=== PATIENT | female | born 1960 | race Caucasian/White ===

== ENCOUNTER 2017-07-18 11:40 | Day surgery (SDC) | payer BC ==
[2017-07-17 14:31] LABS: HEMATOCRIT 37.9 % (36.0-48.0); HEMOGLOBIN 12.7 g/dL (12-16); MCH 31.9 pg (26.0-34.0); MCHC 33.5 g/dL (31.0-37.0); MCV 95.2 fL (80.0-100.0); RBC 3.98 10x6/uL (4.00-5.40); RDW 14.3 % (11.5-14.5); WBC 11.4 10x3/uL (4.8-10.8)
[~2017-07-18] VITALS: Ht 160 cm; Wt 52.2 kg
[~2017-07-18 11:40] MED LIST: ATIVAN2 MG PO; BYSTOLIC10 MG PO; CALCIUM 500 +1 EAC3 PO; FOLIC ACID1 MG PO; HYDROCHLOROTH12.5 M1 PO; HYDROCODONE-APA1 TAB PO; IMITREX100 MG PO; MULTIPLE VITAMI1 TA1 PO; PROLIA INJ 660 MG/M1 IJ; SOMA350 MG PO; TOPAMAX100 MG PO; TRAMADOL HCL E100 M1 PO; VALIUM10 MG PO; VITAMIN B-121000 MCG; VITAMIN D31000 UNI2; WELLBUTRIN SR150 MG PO
[2017-07-18 11:59] VITALS: BP 141/78; Ht 160 cm; Wt 52.2 kg
--- NOTE | 2017-07-18 19:14 | NUR ---
PATIENT SITTING UP EATING ICE CHIPS. TOLERATING WELL.
[2017-07-18 19:46] VITALS: BP 133/78
--- NOTE | 2017-07-18 21:45 | NUR ---
PATIENT IS AWAKE, ALERT AND ORIENTED X'S 4. RESPIRATIONS ARE EVEN AND UNLABORED ON ROOM AIR. PATIENT VOIDED. D/C IV WITH CATHETER INTACT. PERSCRIPTION FOR PERCOCET WRITTEN BY GIVEN TO PATIENT. DISCHARGE INSTRUCTIONS COMPLETED WITH PATIENT. PATIENT LEFT VIA WHEELCHAIR WITH GRADUATE TEACHING ASSOCIATE AND FAMILY MEMBER.
--- NOTE | 2017-08-21 13:24 | OP ---
PATIENT NAME: VALE GREWAL MEDICAL RECORD: [id number] :58 LOCATION:[facility] ADMISSION DATE: SURGEON: RADHA PAVON MD DATE OF OPERATION: 07/18/2017 PREOPERATIVE DIAGNOSIS: T12, L3, and L5 compression fracture secondary to osteoporosis. POSTOPERATIVE DIAGNOSIS: T12, L3, and L5 compression fracture secondary to osteoporosis. PROCEDURE: T12, L3, and L5 kyphoplasties. DESCRIPTION AND TECHNIQUE: After induction of general endotracheal anesthesia, the pedicles at T12, L3, and L5 were cannulated with the [employer] needles. Bone drills were advanced through each cannula and bone biopsies were sent to pathology for diagnosis. Kyphoplasty balloons were advanced through each cannula under fluoroscopic control and inflated. The balloons were deflated. Then, the voids created were back filled with methyl methacrylate bone cement. Good position of the cement was confirmed at T12, L3, and L5. The cannulae were removed. Each of stab incisions was closed with a Steri-Strip. A sterile dressing was applied to all 3 wounds. The patient was awakened in good condition and taken to recovery. All counts were reported as correct. Estimated blood loss was minimal. TRANSINT:[id number] Voice Confirmation ID: [id number] DOCUMENT ID: [id number] RADHA PAVON MD at 1324 CC: [id number] DICTATION DATE: 08/04/17 1332 RING ATTACHER: 08/04/17 1353 [facility] 07/18/[address] [id number]
== END 2017-07-18 21:45 | disposition home or self-care (01) ==
LOC: D.OPS 11:40 → D.PAN 13:30 → D.OPS 13:30 → D.MS 19:34 → D.OPS 21:45
PROVIDERS: Anesthesiology
DX: M80.88XA Other osteoporosis with current pathological fracture, vertebra(e), initial encounter for fracture (principal); I10 Essential (primary) hypertension; M54.5 Low back pain; Z01.812 Encounter for preprocedural laboratory examination